=== PATIENT | male | born 1945 | race Caucasian/White ===

== ENCOUNTER → 2016-09-18 | Day surgery (SDC) | payer MEDICARE, OTHER ==
[~2016-09-18] VITALS: Ht 182.9 cm; Wt 83.9 kg
[2016-09-18] VITALS (8 sets, daily range): BP systolic 128–153; BP diastolic 83–92
[~2016-09-18] MED LIST: FLOMAX0.4 MG ORAL; LOSARTAN POTASS25 MG ORAL; LR 1000ml ONE; Lidocaine 1% MPF 10mg/ml 5ml ONE; PROSCAR5 MG ORAL; Propofol 10mg/ml 20ml IV ONE
--- NOTE | 2016-09-18 11:34 | Pre-Procedure Note/Attestation ---
Pre-Procedure Note/Attestation Complete Prior to Procedure Planned Procedure: not applicable Procedure Narrative: egd/colonoscopy Indications for Procedure Pre-Operative Diagnosis: abd pain, wt loss Attestation I attest that I discussed the nature of the procedure; its benefits; risks and complications; and alternatives (and the risks and benefits of such alternatives ), prior to the procedure, with the patient (or the patient's legal transportation services representative). I attest that, if there was a reasonable possibility of needing a blood transfusion, the patient (or the patient's legal transportation services representative) was given the [facility] standardized written summary, pursuant to the Jacob Chey Blood Safety Act ([place] Health and Safety Code # 1645, as amended). I attest that I re-evaluated the patient just prior to the surgery and that there has been no change in the patient's H&P, except as documented below: ZEINA CHERY Sep 18, 2016 11:34
--- NOTE | 2016-09-18 11:35 | Short Stay Surgery H&P ---
History of Present Illness History of Present Illness Chief Complaint abd pain, wt loss HPI Elliot Mariscal is a 71 year old male who was admitted on for Gerd,Colon Screening Patient History Allergies: Coded Allergies: No Known Allergies (Unverified , 05/18/14) PAST MEDICAL HISTORY: (1) Gastritis (2) Gastric polyp (3) Constipation (4) Hyperchloremia (5) Anxiety (6) Depression Past Surgeries: Social History: Medication History Scheduled Finasteride* (Proscar*), Unknown Dose ORAL DAILY, (Reported) Losartan Potassium* (Losartan Potassium*), 25 MG ORAL DAILY, (Reported) Tamsulosin HCl (Flomax), Unknown Dose ORAL DAILY, (Reported) Review of Systems Cardiovascular: Reports: no symptoms Respiratory: Reports: no symptoms Skeletal: Reports: no symptoms Gastrointestinal: Reports: no symptoms Genitourinary: Reports: no symptoms Neurologic: Reports: no symptoms Endocrine: Reports: no symptoms Hematologic: Reports: no symptoms Physical Exam Vital Signs Last Vital Signs Date Time Temp Pulse Resp B/P Pulse Ox O2 Delivery O2 Flow Rate FiO2 09/18/16 10:58 97.9 71 18 141/87 97 Room Air Skin: normal HENT: normal Heart: normal Lungs: normal Abdomen: normal Extremities: normal Plan Plan of Care egd/colon Final Diagnosis: Attestation Are the patient's medical conditions optimized for surgery? Attestation Response: yes ZEINA CHERY Sep 18, 2016 11:35
--- NOTE | 2016-09-18 12:05 | Endoscopy Procedure Note ---
Endoscopy Procedure Note Indication for Procedure: abd pain Procedures Performed: EGD, colonoscopy Operative Findings/Diagnosis: gastritis, esophagitis Specimen: yes Pt Tolerated Procedure Well: Yes Estimated Blood Loss: none Anesthesiologist: vishnu Anesthesia: MAC Implant(s) used?: No 50 yrs or older w/o bx or poly: Yes 10yrs. F/U not recommended: Yes If not recommended, why?: Above average risk 10 yrs. F/U needed: Yes 18 years or older w/prev. colo: Yes <3yrs. since last colonoscopy: No ZEINA CHERY Sep 18, 2016 12:05
--- NOTE | 2016-09-18 12:17 | Anethesia Preoperative Eval ---
Anesthesia Pre-op PMH/ROS General Date of Evaluation: Sep 18, 2016 Time of Evaluation: 11:45 Anesthesiologist: zayda ASA Score: ASA 2 Mallampati Score Class I : Soft palate, uvula, fauces, pillars visible Class II: Soft palate, uvula, fauces visible Class III: Soft palate, base of uvula visible Class IV: Only hard plate visible Mallampati Classification: Class II Surgeon: jose Diagnosis: gerd/colon screening Surgical Procedure: EGD/Colonoscopy Anesthesia History: none Allergies: Coded Allergies: No Known Allergies (Unverified , 05/18/14) Medications: see eMAR Past Medical History Cardiovascular: Reports: HTN Pulmonary: Denies: COPD, CK, asthma, other Gastrointestinal/Genitourinary: Reports: GERD Neurologic/Psychiatric: Reports: depression/anxiety Endocrine: Denies: DM, hypothyroidism, other, steroids HEENT: Denies: [place] (L), [place] (R), cataract (L), cataract (R), glaucoma, other Hematology/Immune: Denies: DVT, anemia, bleeding disorder, other Musculoskeletal/Integumentary: Denies: DDD, DJD, OA, RA, edema, other Anesthesia Pre-op Phys. Exam Physician Exam Last Vital Signs Date Time Temp Pulse Resp B/P Pulse Ox O2 Delivery O2 Flow Rate FiO2 09/18/16 10:58 97.9 71 18 141/87 97 Room Air Constitutional: NAD Neurologic: CN 2-12 intact Cardiovascular: RRR Respiratory: CTA Gastrointestinal: S/NT/ND Airway Exam Mallampati Classification 2 Mallampati Score: Class II MO: full ROM: full Dentures: no lower, no upper Anesthesia Pre-op A/P Studies Pre-op Studies: EKG - SR Risk Assessment & Plan Plan: mac Status Change Before Surgery: No Pre-Antibiotics Drug: none ERIC SOUSA CRNA Sep 18, 2016 12:17
--- NOTE | 2016-09-18 12:18 | Immediate Post-Op Evaluation ---
Immediate Post-Op Evalulation Immediate Post-Op Evalulation Procedure: EGD/Colonoscopy Date of Evaluation: Sep 18, 2016 Time of Evaluation: 12:18 Blood Pressure Systolic: 128 Blood Pressure Diastolic: 83 Pulse Rate: 67 Respiratory Rate: 14 O2 Sat by Pulse Oximetry: 99 Pain Score (1-10): 98.2 Patient Status: awake, reacts, patent Hydration Status: adequate Drug: none ERIC SOUSA CRNA Sep 18, 2016 12:18
--- NOTE | 2016-09-18 12:37 | 48 Hour Post Anesthesia Eval ---
Post Anesthesia Evaluation Procedure: EGD/Colonoscopy Date of Evaluation: Sep 18, 2016 Time of Evaluation: 12:37 Blood Pressure Systolic: 135 0: 87 Pulse Rate: 75 O2 Sat by Pulse Oximetry: 99 Airway: patent Nausea: No Vomiting: No Hydration Status: adequate Post-Anesthesia Complications: none Follow-up care needed: N/A ERIC SOUSA CRNA Sep 18, 2016 12:37
--- NOTE | 2016-09-18 19:58 | Procedure Note ---
DATE OF PROCEDURE: 09/18/2016 SURGEON: Yuniel Morgan M.D. PROCEDURE: Upper endoscopy with biopsy and colonoscopy. ANESTHESIA: Per Jenni RUDOLPH. INSTRUMENT: Olympus adult flexible upper endoscope and colonoscope. INDICATION: Abdominal pain and weight loss. REASON FOR PROCEDURE: The procedure, risks, benefits, and possible consequences, including hemorrhage, aspiration, perforation and infection, and alternative treatments, were explained to the patient/legal guardian by Dr. Yuniel Morgan and the patient/legal guardian understood and accepted these risks. PROCEDURE: After informed consent was obtained and the patient was adequately sedated, Olympus upper endoscope was advanced from mouth into the second portion of the duodenum and retroflexion was performed in the stomach. The patient has evidence of diffuse gastritis. Random biopsy from antrum was obtained to rule out H. pylori infection. The patient had evidence of minimum distal esophagitis, grade 1. At this time, the upper endoscope was retrieved and the patient was turned over for colonoscopy. First, a rectal exam was performed, which was normal. Then, the scope was advanced from the rectum into the cecum, documented by appendicial orifice, ileocecal valve, and right upper quadrant palpation. Quality of prep was very good. The patient had normal colonoscopy examination without any mass, polyp, or any other pathology seen. Retroflexion of rectum showed evidence of internal hemorrhoids, small and nonbleeding. SUMMARY FINDINGS: 1. Minimum distal esophagitis. 2. Gastritis, status post biopsy. 3. Internal hemorrhoids. RECOMMENDATIONS: Followup biopsy results and treat accordingly. Yuniel Morgan M.D. DR: GEMMA JOB#: [id number] CC:
--- NOTE | 2016-09-20 23:36 | Cardiology Report ---
APPROVED REPORT EKG Measurement Heart [id number] WI [id number] Sinus rhythm with occasional premature ventricular complexes Left anterior fascicular block Abnormal ECG
== END | disposition home or self-care (01) ==
LOC: GAS 09:55
DX: K29.50 Unspecified chronic gastritis without bleeding (principal); K20.9 Esophagitis, unspecified; R63.4 Abnormal weight loss; K64.8 Other hemorrhoids; K59.00 Constipation, unspecified; I10 Essential (primary) hypertension; K21.9 Gastro-esophageal reflux disease without esophagitis; F32.9 Major depressive disorder, single episode, unspecified; F41.9 Anxiety disorder, unspecified
CPT/HCPCS: 43239; 45378; 93005; J2704; J7120; 94003; 94150

== ENCOUNTER 2018-07-09 09:10 | Outpatient (CLI) | payer MEDICARE, OTHER ==
[~2018-07-09 09:10] MED LIST changes: -LR 1000ml ONE; -Lidocaine 1% MPF 10mg/ml 5ml ONE; -Propofol 10mg/ml 20ml IV ONE
--- NOTE | 2018-07-09 10:50 | GI Progress Note ---
Assessment/Plan Problems: (1) External hemorrhoid ICD Codes: K64.4 - Residual hemorrhoidal skin tags SNOMED: 04479277 (2) Anxiety ICD Codes: F41.9 - Anxiety; F48.9 - Nonpsychotic mental disorder, unspecified SNOMED: 48771229 (3) Constipation ICD Codes: K59.00 - Constipation SNOMED: 08864698 Status: stable Status Narrative Seen with Dr. Morgan. Assessment/Plan Rx Annusol- HC RTC PRN The patient was seen and examined at bedside and all new and available data was reviewed in the patients chart. I agree with the above findings, impression and plan. (Patient seen earlier today. Signature stamp does not reflect patient encounter time.). - Yuniel Morgan MD Subjective Subjective rectal pain Objective T 98.2 BP 154/64 P 79 92 RA General Appearance: WD/WN, no apparent distress, alert Cardiovascular: normal rate Respiratory/Chest: normal breath sounds, no respiratory distress Abdominal Exam: normal bowel sounds, non tender, soft Extremities: normal range of motion, non-tender Wilmer Combs NP Jul 09, 2018 10:50
== END 2018-07-09 09:40 | disposition home or self-care (01) ==
LOC: PAN 09:10
DX: K64.4 Residual hemorrhoidal skin tags (principal); F41.9 Anxiety disorder, unspecified; F48.9 Nonpsychotic mental disorder, unspecified; K59.00 Constipation, unspecified
CPT/HCPCS: 99202

== ENCOUNTER 2020-05-27 13:13 | Outpatient (CLI) | payer MEDICARE, OTHER ==
[2020-05-27 13:43] VITALS: BP 151/77
[2020-05-27] MEDS ORDERED: GABAPENTIN600 MG ORAL (13:48)
--- NOTE | 2020-05-27 16:03 | General Progress Note ---
Subjective ROS Limited/Unobtainable: Yes Allergies: Coded Allergies: No Known Allergies (Unverified , 05/18/14) Objective Last 24 Hour Vital Signs Date Time Temp Pulse Resp B/P (MAP) Pulse Ox O2 Delivery O2 Flow Rate FiO2 05/27/20 13:43 98.6 57 16 151/77 97 General Appearance: alert EENT: normal ENT inspection Neck: supple Cardiovascular: normal rate Respiratory/Chest: lungs clear Abdomen: normal bowel sounds, non tender, soft Extremities: non-tender Assessment/Plan Assessment/Plan: (1) External hemorrhoid ICD Codes: K64.4 - Residual hemorrhoidal skin tags SNOMED: 73433289 (2) Anxiety ICD Codes: F41.9 - Anxiety; F48.9 - Nonpsychotic mental disorder, unspecified SNOMED: 25599061 (3) Constipation ICD Codes: K59.00 - Constipation SNOMED: 00277300 Status: stable uday anal abscess cipro and flagyl surg referral if no improvement Yuniel Morgan MD May 27, 2020 16:03
== END 2020-05-27 15:13 | disposition home or self-care (01) ==
LOC: PAN 13:13
DX: K64.4 Residual hemorrhoidal skin tags (principal); F41.9 Anxiety disorder, unspecified; F48.9 Nonpsychotic mental disorder, unspecified; K59.00 Constipation, unspecified
CPT/HCPCS: 99212